=== PATIENT | male | born 1960 | race Caucasian/White ===

== ENCOUNTER → 2016-09-08 | Outpatient (CLI) | payer OTHER ==
[~2016-09-08] MED LIST: ASPIRIN81 M1; CEPHALEXIN500 M1 PO; GABAPENTIN600 MG PO; GLIMEPIRIDE4 MG PO; JANUVIA100 MG; LANTUS100 U/ML; LEVEMIR100 U/ML SC; LISINOPRIL2.5 MG PO; METFORMIN1000 MG PO; METOPROLOL100 MG; METOPROLOL100 MG PO; PLAVIX75 MG; ZOCOR20 MG
== END | disposition home or self-care (01) ==
LOC: ORTHO 04:46
DX: M75.52 Bursitis of left shoulder (principal); M75.92 Shoulder lesion, unspecified, left shoulder

== ENCOUNTER → 2016-10-13 | Outpatient (CLI) | payer OTHER | END | disposition home or self-care (01) | LOC: MRI 07:28 | DX: S41.012A Laceration without foreign body of left shoulder, initial encounter (principal); M75.92 Shoulder lesion, unspecified, left shoulder; M75.52 Bursitis of left shoulder; M25.412 Effusion, left shoulder; X58.XXXA Exposure to other specified factors, initial encounter; Y93.89 Activity, other specified; Y92.89 Other specified places as the place of occurrence of the external cause; Y99.8 Other external cause status ==

== ENCOUNTER → 2017-09-03 | Outpatient (CLI) | payer OTHER | END | disposition home or self-care (01) | LOC: MRI 07:49 | DX: S46.912D Strain of unspecified muscle, fascia and tendon at shoulder and upper arm level, left arm, subsequent encounter (principal); R60.0 Localized edema; M19.012 Primary osteoarthritis, left shoulder; X58.XXXD Exposure to other specified factors, subsequent encounter ==

== ENCOUNTER 2018-08-21 01:25 | Emergency (ER) | payer OTHER ==
--- NOTE | ~2018-08-21 | EKG ---
[place], [place] ELECTROCARDIOGRAM REPORT NAME: CINYD RIOS UNIT #: [id number] ROOM: DOCTOR: EPIPHANY DRAFT REPORT BIRTHDATE: [birth year] [facility] Test Date: 2018-08-21 Test Time: 01:49:37 Pat Name: CINDY RIOS Department: Room: Gender: Protocol Officer: Kevin Acuna : 1960 Requested By: NANCY JOHNSON Order Number: [id number] Reading MD: Ivon Booker MD Measurements Intervals [place] Rate: 140 P: [place]: QRS: 50 QRSD: 114 T: 211 QT: 310 QTc: 473 Interpretive Statements Atrial flutter/fibrillation Incomplete left bundle branch block ST depr, consider ischemia, inferior leads Baseline wander in lead(s) II,aVR,aVF,V6 Electronically Signed On 08-21-2018 10:31:57 PDT by Ivon Booker MD CM:EKGRPT:ELECTROCARDIOGRAM REPORT [id number] NANCY PAGAN DRAFT REPORT NANCY JOHNSON DO
--- NOTE | ~2018-08-21 | EKG ---
[place], [place] ELECTROCARDIOGRAM REPORT NAME: CINDY RIOS UNIT #: [id number] ROOM: DOCTOR: EPIPHANY DRAFT REPORT BIRTHDATE: [birth year] [facility] Test Date: 2018-08-21 Test Time: 01:33:21 Pat Name: CINDY RIOS Department: Room: Gender: Dehairer: Kevin Acuna : 1960 Requested By: NANCY JOHNSON Order Number: [id number] Reading MD: Ivon Booker MD Measurements Intervals [place] Rate: 129 P: [place]: QRS: 55 QRSD: 108 T: 211 QT: 293 QTc: 430 Interpretive Statements Atrial fibrillation Incomplete left bundle branch block ST depr, consider ischemia, inferior leads Baseline wander in lead(s) V1 Electronically Signed On 08-21-2018 10:31:44 PDT by Ivon Booker MD CM:EKGRPT:ELECTROCARDIOGRAM REPORT [id number] 1031 NANCY PAGAN DRAFT REPORT NANCY JOHNSON DO
[2018-08-21 02:07] LABS: HEMATOCRIT 47.5 % (42.0-52.0); MEAN CELL VOLUME 84.7 fl (80.0-94.0); MEAN CORPUSCULAR HGB 28.5 pg (27.0-31.0); MEAN CORPUSCULAR HGB CONC 33.7 g/dl (33.0-37.0); MEAN PLATELET VOLUME 10.8 fl (9.6-12.3); PLATELET COUNT AUTOMATED 190 10*3/uL (130-400); RED BLOOD COUNT 5.61 10*6/uL (4.50-5.90); RED CELL DISTRI WIDTH 13.2 % (0-14.5); WHITE BLOOD COUNT 11.4 10*3/uL (4.8-10.8)
[2018-08-21 02:18] LABS: ACT PARTIAL THROMBO TIME 28.7 SECONDS (20.0-32.1)
[2018-08-21 02:24] LABS: ALBUMIN 4.5 gm/dl (3.1-4.5); ALKALINE PHOSPHATASE 52 U/L (45-117); BUN 16 mg/dl (7-24); CHLORIDE 105 mmol/L (98-107); CREATININE 1.02 mg/dL (0.70-1.30); SGOT/AST 29 IU/L (3-35); SGPT/ALT 25 U/L (12-78); SODIUM 143 mmol/L (136-145); TOTAL PROTEIN 8.4 gm/dL (6.4-8.2)
[2018-08-21 02:26] LABS: TROPONIN I 0.217 ng/ml (<0.045)
[2018-08-21 02:34] LABS: PLATELET SUFFICIENCY NORMAL (NORMAL); TOTAL CELLS COUNTED 100 #CELLS
== END 2018-08-21 03:02 | disposition short-term general hospital (02) ==
LOC: ED 01:25
PROVIDERS: Student in an Organized Health Care Education/Training Program
DX: I24.9 Acute ischemic heart disease, unspecified (principal); Z79.899 Other long term (current) drug therapy; Z79.82 Long term (current) use of aspirin

== ENCOUNTER → 2022-07-29 | Outpatient (CLI) | payer OTHER | END | disposition home or self-care (01) | LOC: RESCLI 00:59 | PROVIDERS: ATTEND Internal Medicine | DX: I10 Essential (primary) hypertension (principal); E78.5 Hyperlipidemia, unspecified; E11.9 Type 2 diabetes mellitus without complications; I25.10 Atherosclerotic heart disease of native coronary artery without angina pectoris; G62.9 Polyneuropathy, unspecified; D50.9 Iron deficiency anemia, unspecified; I73.9 Peripheral vascular disease, unspecified; K21.9 Gastro-esophageal reflux disease without esophagitis; Z95.2 Presence of prosthetic heart valve; Z79.899 Other long term (current) drug therapy; Z79.01 Long term (current) use of anticoagulants; Z79.84 Long term (current) use of oral hypoglycemic drugs ==

== ENCOUNTER → 2022-08-10 | Outpatient (CLI) | payer OTHER | END | disposition home or self-care (01) | LOC: US 09:30 | PROVIDERS: ATTEND Internal Medicine | DX: I70.201 Unspecified atherosclerosis of native arteries of extremities, right leg (principal) ==

== ENCOUNTER → 2023-07-27 | Outpatient (CLI) | payer OTHER | END | disposition home or self-care (01) | LOC: RESCLI 00:38 | PROVIDERS: ATTEND Internal Medicine | DX: E11.9 Type 2 diabetes mellitus without complications (principal); K21.9 Gastro-esophageal reflux disease without esophagitis; G62.9 Polyneuropathy, unspecified; E78.5 Hyperlipidemia, unspecified; I25.10 Atherosclerotic heart disease of native coronary artery without angina pectoris; Z95.2 Presence of prosthetic heart valve; Z79.899 Other long term (current) drug therapy; Z88.8 Allergy status to other drugs, medicaments and biological substances; Z98.890 Other specified postprocedural states ==

== ENCOUNTER 2023-11-11 05:46 | Emergency (ER) | payer OTHER ==
[~2023-11-11] VITALS: Wt 105.9 kg
== END 2023-11-11 10:59 ==
LOC: ED 05:46
DX: I46.9 Cardiac arrest, cause unspecified (principal); E11.9 Type 2 diabetes mellitus without complications; I25.2 Old myocardial infarction; I10 Essential (primary) hypertension; E78.5 Hyperlipidemia, unspecified; I48.91 Unspecified atrial fibrillation; Z95.5 Presence of coronary angioplasty implant and graft